=== PATIENT | female | born 2000 | race Two or more races ===

== ENCOUNTER 2021-04-01 23:37 | Emergency (ER) | payer OTHER ==
[~2021-04-01] VITALS: Ht 162.6 cm; Wt 79.8 kg
[2021-04-02] MEDS ORDERED: LEVSIN/SL0.125 MG SL (07:20)
[2021-04-02] MEDS ORDERED: PHAZYME250 MG PO (07:20)
[2021-04-02] MEDS ORDERED: PEPCID40 MG PO (07:20)
== END 2021-04-02 07:44 | disposition home or self-care (01) ==
LOC: ER 23:37 → EMR PED 23:50 → ER 23:50 → EMR PED 04-02 07:44
DX: K29.70 Gastritis, unspecified, without bleeding (principal); R10.11 Right upper quadrant pain